=== PATIENT | male | born 1990 | race Caucasian/White ===

== ENCOUNTER 2019-07-02 17:59 | Emergency (ER) | payer BC ==
[2019-07-02] MEDS ORDERED: methylPREDNISolone Sod Succ/PF 125 MG/2 ML VIAL ONE (18:55)
[2019-07-02] MEDS ORDERED: EPINEPHrine 1 MG/ML AMP ONE (18:55)
[2019-07-02] MEDS ORDERED: diphenhydrAMINE 50 MG/ML VIAL ONE (18:55)
[2019-07-02] MEDS ORDERED: Famotidine/PF 20 mg/2ml Vial ONE (18:55)
== END 2019-07-02 22:06 | disposition home or self-care (01) ==
LOC: ERS 17:59
DX: T78.2XXA Anaphylactic shock, unspecified, initial encounter (principal); R73.03 Prediabetes; F41.9 Anxiety disorder, unspecified; F17.290 Nicotine dependence, other tobacco product, uncomplicated
CPT/HCPCS: 93005; 94760; 96361; 96372; 96374; 96375; J0171; J1200; J2930; S0028

== ENCOUNTER 2020-11-14 22:49 | Emergency (ER) | payer BC, OTHER ==
[2020-11-14] MEDS ORDERED: Famotidine 20 MG TAB ONE (23:22)
[2020-11-14] MEDS ORDERED: predniSONE 20 MG TAB ONE (23:22)
[2020-11-14] MEDS ORDERED: diphenhydrAMINE 50 MG CAP ONE (23:22)
== END 2020-11-15 00:13 | disposition home or self-care (01) ==
LOC: ERS 22:49
DX: T78.40XA Allergy, unspecified, initial encounter (principal); F17.290 Nicotine dependence, other tobacco product, uncomplicated; X58.XXXA Exposure to other specified factors, initial encounter
CPT/HCPCS: 99283; J7512

== ENCOUNTER 2024-11-29 16:16 | Emergency (ER) | payer BC, OTHER ==
[2024-11-29] MEDS ORDERED: predniSONE 20 MG TAB ONE (17:22)
== END 2024-11-29 17:57 | disposition home or self-care (01) ==
LOC: ERS 16:16
DX: T63.2X1A Toxic effect of venom of scorpion, accidental (unintentional), initial encounter (principal); F17.290 Nicotine dependence, other tobacco product, uncomplicated
CPT/HCPCS: 93005; 99283; J7512